=== PATIENT | female | born 1975 | race Hispanic/Latino ===

== ENCOUNTER 2017-06-29 21:02 | Emergency (ER) | payer BC ==
[2017-06-29] MEDS ORDERED: METOCLOPRAMIDE 10 MG/2 ML VIAL ONE (21:45)
[2017-06-29] MEDS ORDERED: KETOROLAC TROMETHAMINE 30MG/ML ONE (21:45)
[2017-06-29] MEDS ORDERED: DiphenhydrAMINE HCL 50 MG/ML VIAL ONE (21:45)
== END 2017-06-29 22:30 | disposition home or self-care (01) ==
LOC: EDH 21:02
DX: G43.909 Migraine, unspecified, not intractable, without status migrainosus (principal); I10 Essential (primary) hypertension; Z91.048 Other nonmedicinal substance allergy status
CPT/HCPCS: 96372 ×3; 99284; J1200; J1885; J2765

== ENCOUNTER 2017-08-25 01:08 | Emergency (ER) | payer BC | END 2017-08-25 02:42 | disposition left against medical advice (07) | LOC: EDH 01:08 | DX: Z53.21 Procedure and treatment not carried out due to patient leaving prior to being seen by health care provider (principal) ==

== ENCOUNTER 2017-09-18 22:07 | Emergency (ER) | payer BC ==
[2017-09-18] MEDS ORDERED: DiphenhydrAMINE HCL 50 MG/ML VIAL ONE (22:52)
[2017-09-18] MEDS ORDERED: ONDANSETRON HCL MDV 20ML 2 MG/ML VIAL ONE (22:53)
[2017-09-18] MEDS ORDERED: METOCLOPRAMIDE 10 MG TABLET ONE (22:57)
[2017-09-18] MEDS ORDERED: KETOROLAC TROMETHAMINE 30MG/ML ONE (22:57)
[2017-09-18] MEDS ORDERED: KETOROLAC TROMETHAMINE 15MG/ML ONE (23:11)
== END 2017-09-19 00:13 | disposition home or self-care (01) ==
LOC: EDH 22:07
DX: G43.909 Migraine, unspecified, not intractable, without status migrainosus (principal); I10 Essential (primary) hypertension; Z90.710 Acquired absence of both cervix and uterus; Z90.49 Acquired absence of other specified parts of digestive tract; Z88.8 Allergy status to other drugs, medicaments and biological substances
CPT/HCPCS: 96374; 96375; 99284; J1200; J1885

== ENCOUNTER 2017-11-07 13:20 | Emergency (ER) | payer BC ==
[2017-11-07] MEDS ORDERED: METOCLOPRAMIDE 10 MG/2 ML VIAL ONE (13:42)
[2017-11-07] MEDS ORDERED: KETOROLAC TROMETHAMINE 30MG/ML ONE (13:42)
[2017-11-07] MEDS ORDERED: ONDANSETRON HCL 4 MG/2 ML VIAL ONE (13:42)
[2017-11-07] MEDS ORDERED: SODIUM CHLORIDE 0.9% 1000ML 1,000 ML IV ONE (13:42)
[2017-11-07] MEDS ORDERED: DiphenhydrAMINE HCL 50 MG/ML VIAL ONE (13:43)
== END 2017-11-07 14:27 | disposition home or self-care (01) ==
LOC: EDH 13:20
DX: G43.909 Migraine, unspecified, not intractable, without status migrainosus (principal); I10 Essential (primary) hypertension; Z90.49 Acquired absence of other specified parts of digestive tract; Z90.710 Acquired absence of both cervix and uterus
CPT/HCPCS: 96374; 96375; 99284; J1200; J1885; J2405; J2765; J7030

== ENCOUNTER 2018-04-20 16:09 | Emergency (ER) | payer BC ==
[2018-04-20] MEDS ORDERED: ONDANSETRON ODT 4 MG TAB ONE (16:35)
[2018-04-20] MEDS ORDERED: KETOROLAC TROMETHAMINE 30MG/ML ONE (16:35)
[2018-04-20] MEDS ORDERED: DiphenhydrAMINE HCL 50 MG/ML VIAL ONE (16:35)
== END 2018-04-20 16:46 | disposition home or self-care (01) ==
LOC: EDH 16:09
DX: G43.909 Migraine, unspecified, not intractable, without status migrainosus (principal); I10 Essential (primary) hypertension; Z98.818 Other dental procedure status
CPT/HCPCS: 96372 ×2; 99284; J1200; J1885

== ENCOUNTER 2018-04-28 21:32 | Emergency (ER) | payer BC ==
[2018-04-28] MEDS ORDERED: METOCLOPRAMIDE 10 MG/2 ML VIAL ONE (22:31)
[2018-04-28] MEDS ORDERED: SODIUM CHLORIDE 0.9% 1000ML 2,000 ML IV ONE (22:32)
[2018-04-28] MEDS ORDERED: DiphenhydrAMINE HCL 50 MG/ML VIAL ONE (22:32)
== END 2018-04-29 00:11 | disposition home or self-care (01) ==
LOC: EDH 21:32
DX: R51 Headache (principal); R11.0 Nausea; I10 Essential (primary) hypertension; Z90.710 Acquired absence of both cervix and uterus
CPT/HCPCS: 96374; 96375; 99283; J1200; J2765; J7030; 96361

== ENCOUNTER 2018-05-25 10:59 | Emergency (ER) | payer BC ==
[2018-05-25] MEDS ORDERED: METOCLOPRAMIDE 10 MG/2 ML VIAL ONE (12:19)
[2018-05-25] MEDS ORDERED: DiphenhydrAMINE HCL 50 MG/ML VIAL ONE (12:19)
[2018-05-25] MEDS ORDERED: SODIUM CHLORIDE 0.9% 1000ML 1,000 ML IV ONE (12:19)
[2018-05-25] MEDS ORDERED: KETOROLAC TROMETHAMINE 30MG/ML ONE (12:20)
== END 2018-05-25 14:12 | disposition home or self-care (01) ==
LOC: EDH 10:59
DX: G43.909 Migraine, unspecified, not intractable, without status migrainosus (principal); I10 Essential (primary) hypertension; Z90.49 Acquired absence of other specified parts of digestive tract; Z90.710 Acquired absence of both cervix and uterus
CPT/HCPCS: 96374; 96375; 99284; J1200; J1885; J2765; J7030

== ENCOUNTER 2022-01-17 21:36 | Emergency (ER) | payer BC, OTHER ==
[~2022-01-17] VITALS: Ht 162.6 cm; Wt 106.6 kg
[2022-01-17 22:17] LABS: BASOPHILS % (AUTO) 0.5 % (0.0-5.0); EOSINOPHILS % (AUTO) 1.8 % (0.0-8.0); HEMATOCRIT 37.6 % (36-48); LYMPHOCYTES % (AUTO) 25.6 % (21.0-51.0); MEAN CORPUSCULAR HEMOGLOBIN 27.1 pg (27.0-33.0); MEAN CORPUSCULAR HGB CONC 33.5 g/dL (32.0-36.0); MEAN CORPUSCULAR VOLUME 80.9 fL (79-99); MONOCYTES % (AUTO) 8.2 % (3.0-13.0); NEUTROPHILS % (AUTO) 63.5 % (40.0-77.0); PLATELET COUNT (AUTO) 250 K/uL (130-400); RED BLOOD CELL COUNT(AUTO) 4.65 MIL/uL (4.00-5.50); RED CELL DISTRIBUTION WIDTH 13.8 % (11.0-15.5); WHITE BLOOD COUNT (AUTO) 9.9 K/uL (4.8-10.8)
[2022-01-17 22:33] LABS: CREATININE 0.8 mg/dL (0.5-1.5); POTASSIUM 3.7 mmol/L (3.5-5.1)
[2022-01-17 22:37] LABS: ALBUMIN 3.8 g/dL (3.5-5.0); TOTAL PROTEIN, SERUM 7.6 g/dL (6.0-8.3)
[2022-01-17] MEDS ORDERED: KETOROLAC 15MG/ML VIAL (15MG/ML) ONE (23:06)
[2022-01-17 23:17] LABS: APPEARANCE,URINE CLEAR (CLEAR); BILIRUBIN,URINE NEGATIVE (NEGATIVE); COLOR,URINE YELLOW (YELLOW); GLUCOSE, URINE (UA) NEGATIVE (NEGATIVE); KETONES,URINE NEGATIVE (NEGATIVE); LEUKOCYTE ESTERASE ,URINE NEGATIVE (NEGATIVE); NITRATE,URINE NEGATIVE (NEGATIVE); OCCULT BLOOD,URINE NEGATIVE (NEGATIVE); PH,URINE 7.5 (5.0-8.0); PROTEIN,URINE NEGATIVE (NEGATIVE); UROBILINOGEN,URINE 0.2 mg/dL (0.2-1.0)
[2022-01-17 23:34] VITALS: BP 137/70
[2022-01-17] MEDS ORDERED: IBUP-2070 PO (23:52)
[2022-01-17] MEDS ORDERED: DICY10 PO (23:52)
== END 2022-01-18 00:11 | disposition home or self-care (01) ==
LOC: EDH 21:36
DX: R10.31 Right lower quadrant pain (principal); R11.0 Nausea; E11.9 Type 2 diabetes mellitus without complications; I10 Essential (primary) hypertension; Z79.1 Long term (current) use of non-steroidal anti-inflammatories (NSAID); Z90.49 Acquired absence of other specified parts of digestive tract
CPT/HCPCS: 99284; 74176; 96374; 80053; 83690; 85025; 81003; 36415; J1885

== ENCOUNTER 2023-06-16 13:19 | Emergency (ER) | payer OTHER ==
[~2023-06-16] VITALS: Ht 162.6 cm; Wt 87.5 kg
[~2023-06-16 13:19] MED LIST: DICY10 PO; IBUP-2070 PO
[2023-06-16 13:34] VITALS: BP 156/87; PULSE 83; RESP 17
[2023-06-16 13:57] LABS: RAPID GROUP A STREP negative (NEGATIVE)
[2023-06-16 14:02] LABS: SARS-CoV-2, RNA, NAAT NEGATIVE SARS CoV-2 (NEGATIVE)
[2023-06-16 14:07] LABS: INFLUENZA TYPE A Negative For Type A (NEGATIVE); INFLUENZA TYPE B Negative For Type B (NEGATIVE)
[2023-06-16] MEDS ORDERED: AMOX1TAB16 PO (16:15)
[2023-06-16] MEDS ORDERED: BENZ-39 PO (16:15)
[2023-06-16] MEDS ORDERED: AZEL23SP NS (16:15)
== END 2023-06-16 16:27 | disposition home or self-care (01) ==
LOC: EDH 13:19
DX: J01.90 Acute sinusitis, unspecified (principal); R05.9 Cough, unspecified; J04.0 Acute laryngitis; Z86.16 Personal history of COVID-19; Z20.822 Contact with and (suspected) exposure to COVID-19
CPT/HCPCS: 87635; 87804; 87880

== ENCOUNTER 2025-03-11 21:44 | Emergency (ER) | payer OTHER ==
[~2025-03-11] VITALS: Ht 162.6 cm; Wt 97.5 kg
[~2025-03-11 21:44] MED LIST changes: +AMOX1TAB16 PO; +AZEL23SP NS; +BENZ-39 PO; +IBUP-1492 PO; -IBUP-2070 PO
--- NOTE | 2025-03-11 21:55 | ERN ---
ED Note History of Present Illness Stated Complaint: RT FOOT ANKLE SWELLING PAIN Chief Complaint: Ankle Problem Time Seen by MD: 21:46 Time Seen by Midlevel: 21:46 Dictation: The patient is a 49-year-old female with a history of cholecystectomy, hyster ectomy who presents to the emergency department with complaints of right foot and right ankle pain after she accidentally twisted today around 2:00 p.m.. Patient reports that she was getting an MRI of her right knee in when she got off she twisted her ankle. Denies any falls or any other traumas. Allergies: Coded Allergies: No Known Drug Allergies (Verified Allergy, 10/04/12) Home Meds Active Scripts Azelastine/Fluticasone (Dymista Nasal [place]) 137 Mcg-50 Mcg/[place].pump, 1 SPRAY NS DAILY for 30 Days, #23 GM Prov:ULYSSES DUQUE 06/16/23 Benzonatate (Tessalon Perles) 100 Mg Cap, 100 MG PO TID for cough for 12 Days, #30 CAP 0 Refills Prov:ULYSSES DUQUE 06/16/23 Amoxicillin/Potassium Clav (Amox Tr-K Clv 875-125 mg Tab) 875 Mg-125 Mg Tablet, 1 EACH PO BID for 10 Days, #20 TAB 0 Refills Prov:ULYSSES DUQUE 06/16/23 Dicyclomine HCl (Bentyl) 10 Mg Cap, 10 MG PO QID, #20 CAP Prov:YVETTE LORA MD 01/17/22 Ibuprofen (Ibuprofen) 600 Mg Tablet, 600 MG PO Q6H PRN for PAIN, #30 TAB Prov:YVETTE LORA MD 01/17/22 Past Medical History Past Medical History: Diabetes-Type II, Hypertension Surgical History: Hysterectomy, Cholecystectomy Social History: Negative, Lives with family History: Not Applicable RN Note Reviewed/Agreed w/PFSH: Yes Review of System Dictation Constitutional: Negative for fever,chills, and weight loss Eyes: Negative for injury, pain,redness, and discharge ENT: Negative for injury,pain or swelling Cardiovascular: Negative for chest pain, palpitations, and edema Respiratory: Negative for shortness of breath, cough, and wheezing, Abdomen/GI: Negative for abdominal pain, nausea, vomiting, diarrhea, and constipation Back: Negative for injury and pain : Negative for injury, bleeding and discharge MS/Extremity: Positive for right ankle, right foot pain Skin: Negative for rash, and discoloration Neuro: Negative for headache, weakness, numbness, tingling, and seizure Psych: Negative for suicide ideation, homicidal ideation, and hallucinations Initial Vital Sign VS Vital Signs Date Time Temp Pulse Resp B/P (MAP) Pulse Ox O2 Delivery O2 Flow Rate FiO2 03/11/25 21:45 98.1 84 16 132/82 99 Room Air 03/11/25 22:04 0 21 Physical Exam Dictation Vital Signs reviewed General Appearance: Alert, oriented x 3, no acute distress, well developed, no urished. Head and Face: non-traumatic. Eyes: PERRL, pink conjunctivas, eyelid no trauma, anterior chamber with arcus senilis. Ears: Pinnas intact and no signs of trauma or erythema ear canals clear and no discharge TM no erythema Nose: No discharge, no bleeding. Oropharynx: Mouth normal, tongue pink. pharynx clear,no erythema, tonsils no exudates, no abscesses noted, mucous me mbrane moist Neck: Supple, non-tender, no thyromegaly, no masses, no JVD, no bruits Breast:Deferred Chest:No tenderness, no crepitus, no paradoxical movement, no retractions Lungs:Clear, well-ventilated, symmetric, no rales, no wheezing, no rhonchi, no stridor, good breath sounds bilaterally Heart: Regular rate, regular rhythm, no murmur, no gallops Vascular: no peripheral edema, dorsalis pedis pulses 3+ bilaterally Abdomen: Soft, positive bowel sounds, nondistended, no guarding, nontender, no rebound, no masses no hepatomegaly, no splenomegaly, no Olivo's sign, no hernias. Rectal: Deferred Genital: Deferred Neurological: Normal speech, motor function intact, sensory function intact Musculoskeletal: Neck nontender, full range of motion, back nontender, full range of motion, Extremities: nontender, full range of motion , mild swelling to right lateral foot, mild bruising Skin: Color pink, dry, no turgor, no rash, no lacerations, no abrasions, no contusions. Lymphatic: Deferred Results (Laboratory/Radiology) Laboratory/Radiology REASON: pain ORDERING PHYSICIAN: PABLO TORIBIO [employer] PROCEDURE: FT 3VW RT - FOOT COMP 3+VWS RT EXAM: CR Right Foot, 3 Views CLINICAL HISTORY: Pain. COMPARISON: None provided. FINDINGS: Questionable avulsion cortical fracture around the base of the fifth metatarsal, it is better appreciated on radiographs of the ankle from the same date. Large plantar and posterior calcaneal enthesophytes. 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 Mild diffuse soft tissue swelling. IMPRESSION: Questionable avulsion cortical fracture around the base of the fifth metatarsal, it is better appreciated on radiographs of the ankle from the same date. Please check clinically for local tenderness. Further evaluation with a noncontrast CT scan of the right foot may be done if clinically warranted. /[place] REASON: pain ORDERING PHYSICIAN: PABLO TORIBIO [employer] PROCEDURE: [id number] - ANKLE COMP 3VWS RT EXAM: CR Right Ankle, 3 views CLINICAL HISTORY: Pain. COMPARISON: None provided. FINDINGS: There is a 4 x 2 mm avulsion cortical fracture around the base of the fifth metatarsal. Large plantar and posterior calcaneal enthesophytes. Mild degenerative spurring and loose bodies around the medial malleolus. The joint spaces are maintained. Mild diffuse soft tissue swelling. IMPRESSION: There is a 4 x 2 mm avulsion cortical fracture around the base of the fifth metatarsal. No other fracture is evident. /[place] Labs Reviewed?: Yes ED Course ED Course Orders Procedure Category Date Status Time Ankle Comp 3vws Rt RAD 03/11/25 Resulted 21:52 Foot Comp 3+Vws Rt RAD 03/11/25 Resulted 21:52 Ketorolac 60mg/2ml PHA 03/11/25 Complete (Toradol 60mg/2ml) 22:00 Current Medications Medications (Trade) Dose Ordered Sig/Lucy Route PRN Reason Start Time Stop Time Status Last Admin Dose Admin Ketorolac Tromethamine (toRADol 60MG/ 2ML) 60 mg ONCE ONCE IM 03/11/25 22:00 03/11/25 22:01 DC 03/11/25 22:16 Vital Signs Date Time Temp Pulse Resp B/P (MAP) Pulse Ox O2 Delivery O2 Flow Rate FiO2 03/11/25 23:17 75 16 122/62 98 Room Air* 0 21 03/11/25 22:04 98.1 82 16 134/61 100 Room Air* 0 21 03/11/25 21:45 98.1 84 16 132/82 99 Room Air Medical Decision Making MDM The patient is a 49-year-old female with a history of cholecystectomy, hysterectomy who presents to the emergency department with complaints of right foot and right ankle pain after she accidentally twisted today around 2:00 p.m.. Patient reports that she was getting an MRI of her right knee in when she got off she twisted her ankle. Denies any falls or any other traumas. X-ray showed a avulsion cortical fracture around the base of the 5th metatarsal. Patient will be placed on a ortho boot and given crutches and follow up with ortho. Patient actually has an appointment with Dr. Conner for orthopedic for the follow up of her knee MRI. Patient reports he will see her orthopedic for this fracture. Patient on physical exam is in no acute distress, stable vital signs, neurovascularly intact, no open wounds. Mild swelling to right foot Differential diagnosis: Ankle sprain, ankle fracture, foot fracture Need for hospitalization: Patient does not meet criteria for hospitalization. There are no social concerns with this patient. DX & DISP Disposition: Discharge Departure Impression: Primary Impression: Fracture of fifth metatarsal bone of right foot Condition: Stable Scripts Meloxicam (Meloxicam) 15 Mg Tablet 1 TAB PO DAILY for 10 Days, #10 TAB 0 Refills Prov: PABLO TORIBIO [employer] 03/11/25 Additional Instructions: Please follow up with the your orthopedic doctor as soon as possible. Continue using your crutches. If anything worsens please return to ER. FOLLOW-UP WITH PRIMARY CARE PROVIDER IN 1 TO 2 DAYS. TAKE MEDICATIONS DIRECTED HERE IN THE EMERGENCY ROOM. OKAY TO CONTINUE HOME MEDICATIONS UNLESS OTHERWISE DISCUSSED DURING YOUR VISIT IN THE EMERGENCY ROOM TODAY. RETURN TO YOUR NEAREST EMERGENCY ROOM IF SYMPTOMS WORSEN OR IF THERE IS NO IMPROVEMENT. CALL 911 IF YOU NEED IMMEDIATE ASSISTANCE. TAKE TYLENOL [id number] NEEDED AND IF NO CONTRAINDICATIONS ARE PRESENT. INCREASE ORAL HYDRATION. A WOUND CULTURE OR URINE CULTURE WAS ORDERED HERE IN THE EMERGENCY ROOM DEPARTMENT PLEASE FOLLOW-UP WITH PRIMARY CARE PROVIDER AND ADVISE THEM TO GET REPEAT PORTS FROM OUR FACILITY. IF YOU HAD ANY MORRIS WRAP/SPLINTS THAT WERE APPLIED HERE, PLEASE DO NOT REMOVE THEM UNTIL YOU SEE YOUR PRIMARY CARE OR SPECIALTY. Referrals: PATY SCHAFFER (PCP) Time of Disposition: 23:54 I have reviewed the case, and I agree with, Diagnosis and Plan PABLO TORIBIO [employer]ER Mar 11, 2025 21:55
--- NOTE | 2025-03-11 22:03 | NUR ---
PT CARE ASSUMED AT THIS TIME
--- NOTE | 2025-03-11 23:34 | HMCIMG ---
EXAM: CR Right Ankle, 3 views CLINICAL HISTORY: Pain. COMPARISON: None provided. FINDINGS: There is a 4 x 2 mm avulsion cortical fracture around the base of the fifth metatarsal. Large plantar and posterior calcaneal enthesophytes. Mild degenerative spurring and loose bodies around the medial malleolus. The joint spaces are maintained. Mild diffuse soft tissue swelling. IMPRESSION: There is a 4 x 2 mm avulsion cortical fracture around the base of the fifth metatarsal. No other fracture is evident. /[place]
--- NOTE | 2025-03-11 23:45 | HMCIMG ---
EXAM: CR Right Foot, 3 Views CLINICAL HISTORY: Pain. COMPARISON: None provided. FINDINGS: Questionable avulsion cortical fracture around the base of the fifth metatarsal, it is better appreciated on radiographs of the ankle from the same date. Large plantar and posterior calcaneal enthesophytes. 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 Mild diffuse soft tissue swelling. IMPRESSION: Questionable avulsion cortical fracture around the base of the fifth metatarsal, it is better appreciated on radiographs of the ankle from the same date. Please check clinically for local tenderness. Further evaluation with a noncontrast CT scan of the right foot may be done if clinically warranted. /[place]
[2025-03-11] MEDS ORDERED: MELO-108 PO (23:56)
--- NOTE | 2025-03-12 00:27 | NUR ---
CRUTCHES GIVEN TO PT AT THIS TIME ORDERED BY ED PHILOMENA SHAH. PT EDUCATED ON THE PROPER USE OF CRUTCHES BY ED RN. PT DEMOSTRATED PROPER USE OF CRUTCHES WITH A STABLE GAIT NOTED.
--- NOTE | 2025-03-12 00:27 | NUR ---
RIGHT FOOT PLACED IN BOOT ORDERED BY ED PHILOMENA SHAH
[2025-03-12 00:28] VITALS: BP 117/69; PULSE 80; RESP 16; TEMP 98.2; O2SAT 98
== END 2025-03-12 00:33 | disposition home or self-care (01) ==
LOC: EDH 21:44
DX: S92.351A Displaced fracture of fifth metatarsal bone, right foot, initial encounter for closed fracture (principal); E11.9 Type 2 diabetes mellitus without complications; I10 Essential (primary) hypertension; Z90.49 Acquired absence of other specified parts of digestive tract; Z90.710 Acquired absence of both cervix and uterus; X50.1XXA Overexertion from prolonged static or awkward postures, initial encounter; Y93.89 Activity, other specified; Y92.89 Other specified places as the place of occurrence of the external cause; Y99.8 Other external cause status
CPT/HCPCS: 99284; 73610; 73630; 96372; J1885